=== PATIENT | male | born 1960 | race African-American/Black ===

== ENCOUNTER 2017-01-15 01:22 | Emergency (ER) | payer OTHER ==
[~2017-01-15] VITALS: Ht 175.3 cm; Wt 130.4 kg
[2017-01-15 02:02] LABS: HEMATOCRIT 40.3 % (38.0-50.0); MCH 31.2 PG (29.0-34.0); MCHC 34.5 G/DL (30.0-36.0); MCV 90.6 FL (86-99); MEAN PLAT.VOLUME 10.2 uM^3 (9.0-12.4); PLATELET COUNT 139 K/uL (156-360); RBC DIS.WIDTH-CV 13.6 % (11.8-14.6); RBC DIS.WIDTH-SD 44.1 % (39-53); RED BLOOD COUNT 4.45 M/uL (4.00-5.50); WHITE BLOOD COUNT 3.8 K/uL (4.1-10.2)
[2017-01-15 02:12] LABS: CHLORIDE 112 mEq/L (99-109); POTASSIUM 5.9 mEq/L (3.7-5.4); SODIUM 135 mEq/L (136-147)
[2017-01-15 02:14] LABS: GLUCOSE 94 mg/dL (70-99)
[2017-01-15 02:15] LABS: ANION GAP 5 MEQ/L (2-14)
[2017-01-15 02:18] LABS: GFR ESTIMATE (CALCULATED) > 59 mL/min/
[2017-01-15 02:19] LABS: UREA NITROGEN (BUN) 55 mg/dL (9-23)
[2017-01-15 02:23] LABS: TROP-I INTERPRETATION NEGATIVE; TROPONIN-I 0.01 ng/mL (0.0-0.30)
[2017-01-15 06:00] VITALS: BP 121/65
== END 2017-01-15 06:36 | disposition short-term general hospital (02) ==
LOC: EME → EDBD 01:22 → EME 01:22
PROVIDERS: Emergency Medicine
DX: E87.5 Hyperkalemia (principal); N28.9 Disorder of kidney and ureter, unspecified; R42 Dizziness and giddiness; E86.0 Dehydration; E78.5 Hyperlipidemia, unspecified; I10 Essential (primary) hypertension; Z87.891 Personal history of nicotine dependence
CPT/HCPCS: 80048; 84484; 85027; 93005; 94644; 99281; 99285; J7030